=== PATIENT | female | born 1980 | race Caucasian/White ===

== ENCOUNTER 2016-04-27 14:54 | Emergency (ER) | payer BC, OTHER ==
[2016-04-27 16:13] VITALS: BP 153/96
--- NOTE | 2016-04-27 16:54 | UC ---
Throat Pain/Nasal Jacobo HPI - HPI Summary HPI Summary: 03/25/16 had influenza symptoms. SINCE THAT TIME HAS HAD SONGESTION IN SINUSES, SORE THROAT AND FULLNESS IN EARS. RIGHT SIDE WORSE THAN LEFT. SIX MONTHS AGO HAD RETURN OF [place]., HAD MANY [place] EPISODES IN ADOLESCENCE. SPOKE TO DR SARAVIA SOCIALLY AND HE SUGGESTED A REFERRAL AND [facility]ISIT [facility]. - History of Current Complaint Chief Complaint: UCRespiratory Stated Complaint: EAR CLOGGED AND SINUS CONGESTION Time Seen by Provider: 04/27/16 16:11 Hx Obtained From: Patient Hx Last Menstrual Period: 04/19/16 Onset/Duration: Gradual Onset, Lasting Weeks Severity: Moderate Pain Intensity: 4 Pain Scale Used: 0-10 Numeric Cough: Nonproductive Associated Signs & Symptoms: Positive: Sinus Discomfort, Nasal Discharge - Epiglottits Risk Factors Epiglottis Risk Factors: Negative - Allergies/Home Medications Allergies/Adverse Reactions: Allergies Allergy/AdvReac Type Severity Reaction Status Date / Time Penicillins Allergy Severe Difficulty Verified 04/24/12 10:43 Breathing Home Medications: Home Medications Ibuprofen [Advil] 200 mg PO 04/27/16 [History] Pseudoephedrine-Ibuprofen [Advil Cold & Sinus] 1 cap PO 04/27/16 [History] PMH/Surg Hx/FS Hx/Imm Hx Previously Healthy: Yes Endocrine History Of: Denies: Diabetes, Thyroid Disease Cardiovascular History Of: Denies: Cardiac Disorders, Hypertension Respiratory History Of: Denies: COPD, Asthma GI/ History Of: Denies: Ulcer - Surgical History Surgical History: Yes Surgery Procedure, Year, and Place: - Family History Known Family History: Negative: Respiratory Disease - Social History Occupation: Employed Full-time Lives: With Family Alcohol Use: Occasionally Substance Use Type: None Smoking Status (MU): Never Smoked Tobacco - Immunization History Most Recent Tetanus Shot: pt unsure Review of Systems Constitutional: Negative Skin: Negative Eyes: Negative ENT: Sore Throat, Ear Ache Respiratory: Negative Cardiovascular: Negative Gastrointestinal: Negative Genitourinary: Negative Motor: Negative Neurovascular: Negative Musculoskeletal: Negative Neurological: Negative Psychological: Negative All Other Systems Reviewed And Are Negative: Yes Physical Exam Triage Information Reviewed: Yes Appearance: Well-Appearing, No Pain Distress, Well-Nourished Vital Signs: Initial Vital Signs Temp 97.3 F 04/27/16 16:06 Pulse 98 04/27/16 16:06 Resp 18 04/27/16 16:06 BP 153/96 04/27/16 16:06 Pulse Ox 100 04/27/16 16:06 Vital Signs Reviewed: Yes Eye Exam: Normal Eyes: Positive: Conjunctiva Clear ENT: Positive: Normal ENT inspection, Hearing grossly normal, TM bulging, TM dull Dental Exam: Normal Neck exam: Normal Neck: Positive: Supple, Nontender, No Lymphadenopathy Respiratory Exam: Normal Respiratory: Positive: Chest non-tender, Lungs clear, Normal breath sounds, No respiratory distress, No accessory muscle use Cardiovascular Exam: Normal Cardiovascular: Positive: RRR, No Murmur, Pulses Normal Abdominal Exam: Normal Musculoskeletal Exam: Normal Neurological Exam: Normal Psychological Exam: Normal Skin Exam: Normal Throat Pain/Nasal Course/Dx - Differential Dx/Diagnosis Differential Diagnosis/HQI/PQRI: Otitis Media, Sinusitis, URI Provider Diagnoses: RIGHT OTITIS SEROUS. VERTIGO. SINUSITIS Discharge - Discharge Plan Condition: Stable Disposition: HOME Prescriptions: DOXYcycline CAP(*) [DOXYcycline 100MG CAP(*)] 100 mg PO BID #20 cap Fluticasone NASAL SPRAY 50MCG* [Flonase NASAL SPRAY 50MCG*] 2 spray BOTH NARES DAILY #1 btl Meclizine TAB* [Antivert 12.5 TAB*] 25 mg PO TID PRN #12 tab PRN Reason: Vertigo Patient Education Materials: Sinusitis (ED), Vertigo (ED), Serous Otitis Media (ED) Referrals: [facility] PHYSICIAN REFERRAL [Outside] Mary Shoemaker MD [Medical Doctor] - Dru Saravia MD [Medical Doctor] -
== END 2016-04-27 16:37 | disposition home or self-care (01) ==
LOC: UCEAST 14:54
DX: H65.91 Unspecified nonsuppurative otitis media, right ear (principal); R42 Dizziness and giddiness; J32.9 Chronic sinusitis, unspecified; Z88.0 Allergy status to penicillin
CPT/HCPCS: 99212; G0463

== ENCOUNTER 2018-01-09 16:23 | Emergency (ER) | payer BC ==
[2018-01-09 18:00] VITALS: BP 138/91
--- NOTE | 2018-01-09 18:11 | UC ---
Skin Complaint HPI - HPI Summary HPI Summary: Patient is a 37-year-old female who presents emergency department for a bump to her left or that she noticed yesterday. Patient also complains of intermittent palpitations. She states she has a lot of stress at home and at work. She states that she feels of the patient's when she is anxious or worked up. She denies chest pain, shortness of breath. She is no significant past medical history. Patient so denies fever, chills, or vomiting. Symptoms are mild to moderate in severity. No current modifying factors. - History of Current Complaint Chief Complaint: UCCardiac Time Seen by Provider: 01/09/18 17:55 Stated Complaint: SKIN COMPLAINT Hx Obtained From: Patient Hx Last Menstrual Period: 04/19/16 Pain Intensity: 0 - Allergy/Home Medications Allergies/Adverse Reactions: Allergies Allergy/AdvReac Type Severity Reaction Status Date / Time Penicillins Allergy Difficulty Verified 01/09/18 17:50 Breathing Home Medications: Home Medications Clobetasol 0.05% OINT* 1 applic TOPICAL BID 01/09/18 [History Confirmed 01/09/18 ] Naproxen Sodium [Naproxen 220 mg] 440 mg PO Q12HR PRN 01/09/18 [History Confirmed 01/09/18] Review of Systems Constitutional: Negative Skin: Other - Bump to left groin Eyes: Negative ENT: Negative Respiratory: Negative Cardiovascular: Palpitations Gastrointestinal: Negative Musculoskeletal: Negative Neurological: Negative Is Patient Immunocompromised?: No All Other Systems Reviewed And Are Negative: Yes PMH/Surg Hx/FS Hx/Imm Hx Previously Healthy: Yes - Surgical History Surgical History: Yes Surgery Procedure, Year, and Place: - Family History Known Family History: Negative: Respiratory Disease - Social History Occupation: Employed Full-time Lives: With Family Alcohol Use: None Substance Use Type: None Smoking Status (MU): Never Smoked Tobacco - Immunization History Most Recent Tetanus Shot: pt unsure Physical Exam Triage Information Reviewed: Yes Appearance: Well-Appearing - Pt. sitting on bed in NAD. Vital Signs: Initial Vital Signs Temp 98.9 F 01/09/18 17:48 Pulse 104 01/09/18 17:48 Resp 18 01/09/18 17:48 BP 138/91 01/09/18 17:48 Pulse Ox 99 01/09/18 17:48 Vital Signs Reviewed: Yes Eyes: Positive: Conjunctiva Clear Neck: Positive: Supple Respiratory: Positive: Lungs clear, Normal breath sounds Cardiovascular: Positive: RRR, No Murmur Neurological Exam: Normal Psychological Exam: Normal Skin: Positive: Other - Noted to the left groin there is a 1cm area of ecchymosis with a smaller area of ecchymosis inferiorly. Area is not tender. No erythema or drainage. Course/Dx - Course Course Of Treatment: Should presenting with intermittent palpitations as well as evaluation of painless area of ecchymosis to left groin. She has no CP or SOB. Afebrile with stable vital signs. EKG done at 1922 shows a sinus rhythm of 84 bpm, normal axis, appropriate intervals, no ST elevation or depression. Did order basic labs to evaluate right hand electrolytes. Bump to left groin is most susceptible they varicose vein. No evidence of abscess or infection. Advised to apply warm compresses patient was given information for the physician referral line to establish a PCP or to follow-up with the [facility]. Call patient tomrrow if blood work is abnormal. Directed to return to urgent care or go to the ER symptoms change or worsen. Patient understands and agrees with plan. - Differential Diagnoses - Skin Complaint Differential Diagnoses: Abscess - Diagnoses Provider Diagnoses: 1. Palpitations 2. Varicose vein Discharge - Sign-Out/Discharge Documenting (check all that apply): Patient Departure All imaging exams completed and their final reports reviewed: No Studies - Discharge Plan Condition: Good Disposition: HOME Patient Education Materials: Heart Palpitations (ED), Venous Insufficiency (DC) Referrals: [facility] [Outside] [facility] PHYSICIAN REFERRAL [Outside] Additional Instructions: Please schedule a follow up appointment with the [facility] or call the physician referral line to establish a PCP Will call if labs are abnormal Apply warm compresses to groin Avoid caffeine Go to the ER for chest pain, shortness of breath, fast heart rate, or for redness, pain, fever, vomiting - Billing Disposition and Condition Condition: GOOD Disposition: Home
[2018-01-10 10:45] LABS: ABS Basophils 0.1 10^3/ul (0-0.2); ABS Eosinophils 0.4 10^3/ul (0-0.6); ABS Lymphocytes 3.1 10^3/ul (1.0-4.8); ABS Monocytes 0.7 10^3/ul (0-0.8); ABS Neutrophils 5.4 10^3/ul (1.5-7.7); ABS Nucleated RBC 0 10^3/ul; Eosinophil % 4.1 % (0-6); Hematocrit 37 % (35-47); Hemoglobin 12.2 g/dl (12.0-16.0); Lymphocyte % 32.1 % (25-47); Mean Corpuscular HGB Conc 33 g/dl (31-36); Mean Corpuscular Hemoglobin 25 pg (27-31); Mean Corpuscular Volume 77 fL (80-97); Mean Platelet Volume 8.7 fL (7.4-10.4); Nucleated Red Blood Cells % 0.1; Platelet Count 371 10^3/ul (150-450); Red Blood Count 4.81 10^6/ul (4.00-5.40); Red Cell Distribution Width 15 % (10.5-15); White Blood Count 9.6 10^3/ul (3.5-10.8)
[2018-01-10 10:57] LABS: EGFR Non-African American 80.7 (>60)
== END 2018-01-09 19:00 | disposition home or self-care (01) ==
LOC: UCEAST 16:23
DX: I83.92 Asymptomatic varicose veins of left lower extremity (principal); R00.2 Palpitations
CPT/HCPCS: 36415; 80053; 83735; 84443; 85025; 93005; 99211; G0463

== ENCOUNTER 2018-09-20 05:52 | Inpatient (IN) | payer BC ==
[~2018-09-20 05:52] MED LIST: Buffered Lidocaine 1% SYRIN* 1 ML/SYRINGE INTRADERM ONE
[2018-09-20] MEDS ORDERED: Famotidine IV* 10 MG/ML 2 ML (20 mg) IV ONE (06:00)
[2018-09-20] MEDS ORDERED: Heparin VIAL(*) 5000 UNITS/ML VIAL (FIVE THOUSAND) ONE (06:26)
[2018-09-20] MEDS ORDERED: Buffered Lidocaine 1% SYRIN* 1 ML/SYRINGE INTRADERM ONE (06:26)
[2018-09-20] MEDS ORDERED: Famotidine IV* 10 MG/ML 2 ML (20 mg) ONE (06:26)
[2018-09-20] MEDS ORDERED: Clindamycin 900 MG IVPREMIX(* 900 MG/50 ML SDV IV ONE (06:26)
[2018-09-20] MEDS: Lactated Ringers 1000 ML Bag* 1,000 ML IV SCH ×4 (07:02→19:09)
[2018-09-20] MEDS ORDERED: Bupivacaine 0.25% EPI 200,000* 30 ML SDV ONE (07:24)
[2018-09-20] MEDS ORDERED: Midazolam* 1 MG/ML 5 ML VIAL (5 MG) ONE (07:30)
[2018-09-20] MEDS ORDERED: fentaNYL* 50 MCG/ML 2 ML VIAL (100 MCG VIAL) ONE ×2 (07:30→08:01)
[2018-09-20] MEDS ORDERED: Rocuronium* 10 MG/ML VIAL ONE (07:32)
[2018-09-20] MEDS ORDERED: Succinylcholine* 20 MG/ML 10 ML VIAL ONE (08:13)
[2018-09-20] MEDS ORDERED: Ketorolac INJ* 30 MG/ML 1 ML VIAL ONE (08:13)
[2018-09-20] MEDS ORDERED: Propofol* 10 MG/ML 20 ML BTL ONE (08:13)
[2018-09-20] MEDS ORDERED: Ondansetron INJ* 2 MG/ML VIAL ONE (08:13)
[2018-09-20] MEDS ORDERED: DiMENhydriNATE IV* 50 MG/ML VIAL ONE ×2 (08:13→09:37)
[2018-09-20] MEDS ORDERED: Dexamethasone IV* 4 MG/ML 1 ML (4 MG) ONE (08:13)
[2018-09-20] MEDS ORDERED: Scopolamine 1.5 mg* PATCH ONE (08:13)
[2018-09-20] MEDS ORDERED: Lidocaine 2% PF * 5 ML VIAL ONE (08:13)
[2018-09-20] MEDS ORDERED: HYDROmorphone INJ1* 1 MG/ML SYRINGE ONE ×2 (08:46→09:32)
[2018-09-20] MEDS ORDERED: diPHENhydraMINE IV* 50 MG/ML 1 ml VIAL (BENADRYL) SLOW PUSH PRN (09:23)
[2018-09-20] MEDS ORDERED: HYDROmorphone INJ1* 1 MG/ML SYRINGE IV SLOW PU PRN (09:30)
[2018-09-20] MEDS ORDERED: DiMENhydriNATE IV* 50 MG/ML VIAL IV PUSH PRN ×2 (09:31→10:25)
[2018-09-20] MEDS ORDERED: Naloxone* 0.4 MG/ML 1 ML VIAL IV PRN (09:31)
[2018-09-20] MEDS ORDERED: Acetaminophen IV 1GM/100ML * 1,000 MG/100 ML VIAL IVPB ONE (09:31)
[2018-09-20] MEDS ORDERED: Acetaminophen IV 1GM/100ML * 100 ML ONE (09:32)
[2018-09-20] MEDS: HYDROmorphone INJ1* 1 MG/ML SYRINGE IV PRN ×4 (09:33→11:42)
[2018-09-20] MEDS ORDERED: Metoclopramide IV* 5 MG/ML 2 ML VIAL ONE (09:53)
[2018-09-20] MEDS ORDERED: Labetalol IV* 5 MG/ML 20 ML VIAL IV PUSH ONE ×2 (10:22)
[2018-09-20] MEDS ORDERED: Labetalol IV* 5 MG/ML 20 ML VIAL ONE (10:23)
[2018-09-20] MEDS ORDERED: Metoclopramide IV* 5 MG/ML 2 ML VIAL IV SLOW PU ONE (10:23)
[2018-09-20] MEDS: Ketorolac INJ* 30 MG/ML 1 ML VIAL IV PRN ×2 (13:19→20:45)
[2018-09-20] MEDS: HYDROmorphone INJ1* 1 MG/ML SYRINGE IV SLOW PU PRN ×3 (14:31→21:59)
[2018-09-20] MEDS: Heparin VIAL(*) 5000 UNITS/ML VIAL (FIVE THOUSAND) SUBCUT SCH ×2 (14:32→21:59)
[2018-09-20] MEDS: Ondansetron INJ* 2 MG/ML VIAL IV PRN (17:56)
[2018-09-20] MEDS: Famotidine IV* 10 MG/ML 2 ML (20 mg) IV SLOW PU SCH (20:45)
--- NOTE | 2018-09-20 21:05 | OP ---
CC: Primary care doctor; [facility] * DATE OF OPERATION: 09/20/18 - ROOM #352 DATE OF : 80 SURGEON: Rex Hu MD TARGETING ACQUISITION OFFICER: Liz Candealria NP ANESTHESIOLOGIST: Dr. Harvey. ANESTHESIA: General anesthesia. PRE-OP DIAGNOSES: 1. Clinically severe obesity. 2. Hypertension. 3. Hypercholesterolemia. POST-OP DIAGNOSES: 1. Clinically severe obesity. 2. Hypertension. 3. Hypercholesterolemia. OPERATIVE PROCEDURE: Laparoscopic sleeve gastrectomy. ESTIMATED BLOOD LOSS: Minimal. FLUIDS: Minimal crystalloid fluid given. SPECIMEN: Portion of stomach. DESCRIPTION OF PROCEDURE: The patient was identified in the preoperative area. She was taken to the operating room and placed on the operating table in supine position. Preoperative antibiotics were given. Sequential devices were placed on bilateral lower extremities. General anesthesia was induced and the patient' s abdomen was prepped and draped in the standard surgical fashion. Time-out was performed. Folds of the umbilicus were elevated anteriorly and a Veress needle inserted into the abdominal cavity which was then allowed to a pressure of 15 mmHg. Optical trocars were then placed along the midline and along the upper midline. Camera was placed through this. There was no evidence of injury from the trocar insertion or from the Veress needle, which was then removed. Two additional trocars were placed in the left upper quadrant and 1 additional 12 mm trocar in the right upper quadrant. The table was repositioned to steep reverse Trendelenburg. A Marley retractor was inserted through the subxiphoid incision. The liver was retracted anteriorly into the right. Review of the abdomen showed normal appearing small bowel and stomach. Liver was appropriate size with some hemangiomas but no lesion suggestive of malignancy. We bluntly dissected the peritoneum overlying the left marcie and turned our attention to the pylorus. Once this was identified, approximately 5 cm proximal to this, a retrogastric dissection was performed and the vasculature to the greater curvature of the stomach was taken with LigaSure device right up to the previously dissected area at the angle of His. Posterior attachments and vessels were taken in a similar fashion until the stomach completely rotated along its axis. Next, the sleeve stomach was created using 60 mm purple AZALEA stapling device with reinforcing strips and performing these over with bougie in a standard fashion. The bougie was removed. The staple line lay flat without any cord screwing. There was no bleeding. Hemostasis was excellent and the liver retractor was removed and fell back on to the sleeve stomach obscuring the stomach entirely. Next, the resected portion of the stomach was placed in endoscopic retrieval bag and brought out through the right upper quadrant port site and passed off as specimen. We then closed the fascia at this level with Weck device using 0 Vicryl suture. Abdomen was allowed to collapse. Trocars were removed under direct vision and all incisions were reapproximated with 4-0 Monocryl subcuticular suture, and Steri-Strips and sterile dressing were applied. The patient tolerated the procedure well, was awoken up in the OR and transferred to the PACU in stable condition. [id number]/[facility] #: [id number] JOE
[2018-09-21] MEDS: Ondansetron INJ* 2 MG/ML VIAL IV PRN ×2 (01:30→09:31)
[2018-09-21] MEDS: Lactated Ringers 1000 ML Bag* 1,000 ML IV SCH ×2 (01:30→09:25)
[2018-09-21] MEDS: Ketorolac INJ* 30 MG/ML 1 ML VIAL IV PRN ×2 (03:20→09:28)
[2018-09-21] MEDS: Heparin VIAL(*) 5000 UNITS/ML VIAL (FIVE THOUSAND) SUBCUT SCH ×3 (05:48→22:10)
[2018-09-21] MEDS: HYDROmorphone INJ1* 1 MG/ML SYRINGE IV SLOW PU PRN ×4 (06:01→18:44)
[2018-09-21] MEDS: Famotidine IV* 10 MG/ML 2 ML (20 mg) IV SLOW PU SCH ×2 (09:22→22:06)
--- NOTE | 2018-09-21 09:53 | PN ---
Progress Note - Progress Note Date of Service: 09/21/18 SOAP: Subjective: pt seen and examined. Doing well. no compliants Objective: [ Temp Pulse Resp BP Pulse Ox 98.6 F 62 12 128/67 96 09/21/18 07:37 09/21/18 07:37 09/21/18 07:37 09/21/18 07:37 09/21/18 07:37 a and o x3, nad abdo: soft/ ND/NT dressing intact ext wnl UGI P Assessment: POD 1 sleeve Plan: UGI possible home today
[2018-09-21] MEDS: D5W 1/2 NS KCl 20 Meq 1000 ML* 1,000 ML IV SCH ×2 (10:51→18:37)
[2018-09-21] MEDS: HYDROcodone/ACET. 7.5/325 LIQ* 15 ML UDC PO PRN (23:49)
[2018-09-22] MEDS: D5W 1/2 NS KCl 20 Meq 1000 ML* 1,000 ML IV SCH (02:37)
[2018-09-22] MEDS: Heparin VIAL(*) 5000 UNITS/ML VIAL (FIVE THOUSAND) SUBCUT SCH ×2 (06:16→14:35)
[2018-09-22] MEDS: HYDROcodone/ACET. 7.5/325 LIQ* 15 ML UDC PO PRN ×2 (06:18→12:32)
[2018-09-22] MEDS: Famotidine IV* 10 MG/ML 2 ML (20 mg) IV SLOW PU SCH (10:21)
--- NOTE | 2018-09-22 10:36 | PN ---
Progress Note - Progress Note Date of Service: 09/22/18 Note: S: Feels better. Not much pain. Raji clears, though has not been recording consistently. Had BM this a.m. Would like to go home. O: Vital Signs - 8 hr 09/22/18 09/22/18 09/22/18 03:22 06:18 07:42 Temperature 98.1 F 98.3 F Pulse Rate 57 57 Respiratory 16 20 15 Rate Blood Pressure 138/72 149/69 (mmHg) O2 Sat by Pulse 99 99 Oximetry 09/22/18 10:22 Temperature Pulse Rate Respiratory 18 Rate Blood Pressure (mmHg) O2 Sat by Pulse Oximetry Intake and Output Last 24 Hours 09/20/18 09/21/18 09/22/18 09/23/18 06:59 06:59 06:59 06:59 Intake Total 4004 1405 776 Output Total 2500 4725 Balance 1504 -3320 776 Weight 247 lb Intake: IV Fluids 4004 1205 776 D5w1/2 NS 990 776 LR 4004 215 Oral 0 200 Output: Urine 2500 4725 Other: # Bowel Movements 0 Gen: appears comfortable; NAD Heart: reg Lungs: clear Abd: lap sites look good; steris in place; mild incisional tenderness only A: s/p lap sleeve gastrectomy, doing well P: home today; instructions reviewed; f/u at [facility] next wk as sched
--- NOTE | 2018-09-22 10:54 | DS ---
CC: Dr. Smith, [facility] * DISCHARGE SUMMARY: DATE OF ADMISSION: 09/20/18 DATE OF DISCHARGE: 09/22/18 ATTENDING SURGEON: Dr. Rex Hu.* (DICTATED BY JONAH GREWAL) HOSPITAL COURSE: Please refer to admission history and physical and operative note for details. The patient was taken to the operating room on 09/20/18, at which time she underwent laparoscopic sleeve gastrectomy with Dr. Hu. Surgery itself and postoperative course had been unremarkable. The patient has been able to gradually progress in terms of oral intake and pain control and is deemed ready for discharge on the morning of postoperative day 2. She will resume her usual medications. She has a prescription for hydrocodone liquid p.r.n. for moderately severe pain, but was also instructed that she may use Tylenol and/or Advil p.r.n. for mild to moderate pain. She already has an appointment next week at [facility]. She was discharged to home in good condition. JONAH GREWAL [id number]/[facility] #: [id number] MTDD
[2018-09-22 11:33] VITALS: BP 144/77
== END 2018-09-22 14:25 | disposition home or self-care (01) | DRG 403 ==
LOC: OR 05:52 → SSU 12:44
PROVIDERS: ADMIT Surgery; ATTEND Surgery
PROC: 0DB64Z3 Excision of Stomach, Percutaneous Endoscopic Approach, Vertical (ICD-10-PCS; principal; 2018-09-20 07:30)
DX: E66.01 Morbid (severe) obesity due to excess calories (principal); Z68.41 Body mass index [BMI] 40.0-44.9, adult; E78.5 Hyperlipidemia, unspecified; I10 Essential (primary) hypertension; E78.00 Pure hypercholesterolemia, unspecified; L40.50 Arthropathic psoriasis, unspecified; Z82.61 Family history of arthritis; Z82.3 Family history of stroke; Z83.49 Family history of other endocrine, nutritional and metabolic diseases; Z80.0 Family history of malignant neoplasm of digestive organs; Z80.1 Family history of malignant neoplasm of trachea, bronchus and lung; Z80.8 Family history of malignant neoplasm of other organs or systems; Z81.8 Family history of other mental and behavioral disorders; Z72.89 Other problems related to lifestyle; Z87.891 Personal history of nicotine dependence
CPT/HCPCS: 43775; 74246; 81025; 88307; A9270-GY; J0330; J1100; J1170; J1240; J1644; J1885; J2250; J2405; J2704; J2765; J3010

== ENCOUNTER 2018-12-20 17:52 | Emergency (ER) | payer BC ==
--- OUTSIDE RECORDS SUMMARY | 2018-12-20 18:09 | XMS REPORT | Continuity of Care Document ---
:1980 External Reference #:[id number] Author Name Dru Carpenter M.D. (transmitted by agent of provider Diana Elizalde) Address [address] [place] [address] Care Team Providers Name Role Phone Helen Valles MD - Surgery of the Care Team Information Graduation Coach Hand Josiane Sanabria MD - Hand Surgery Care Team Information Graduation Coach Virginia Smith DO - Family Care Team Information Graduation Coach Medicine Problems Active Problems Provider Date Psoriasis William Rangel M.D. 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 5000mcg Tablets Dispers Nauruan Dream apply to painful 90units Dru Carpenter, 09/04/2018 Arthritis Pain joints twice daily M.D. Relief as needed for pain 0.025% Cream Clobetasol Unknown Propionate 0.05% Ointment Tylenol 8 Hour 650mg by mouth Unknown Arthritis Pain q6hr as needed 650mg pain Tablets ER Medications Administered in Office Medication SIG Qnty Indications Ordering Provider Date Triamcinolone (Kenalog) Dru Carpenter M.D. 09/04/2018 Injection Celestone 3 mg and 3mg Avinash Parham MD 07/26/2018 Injection Celestone 3 mg and 3mg Avinash Parham MD 07/26/2018 Injection Celestone 3 mg and 3mg Avinash Parham MD 07/26/2018 Injection Celestone 3 mg and 3mg Avinash Parham MD 05/23/2018 Injection Celestone 3 mg and 3mg Avinash Parham MD 05/23/2018 Injection Triamcinolone (Kenalog) Dru Carpenter M.D. 08/18/2017 Injection Celestone 3 mg and 3mg Avinash Parham MD 05/25/2017 Injection Celestone 3 mg and 3mg Avinash Parham MD 05/25/2017 Injection Celestone 3 mg and 3mg Avinash Parham MD 12/01/2015 Injection Celestone 3 mg and 3mg Stephanie Sanabria, 11/23/2010 Injection MEdwige Immunizations Description No Information Available Vital Signs Date Vital Result Comment 12/05/2018 3:28pm Height 66 inches 5'6" Weight 219.25 lb Heart Rate 86 /min BP Systolic Sitting 138 mmHg BP Diastolic Sitting 84 mmHg Pain Level 2 O2 % BldC Oximetry 98 % BMI (Body Mass Index) 35.4 kg/m2 09/04/2018 1:58pm Height 66 inches 5'6" Weight 257.00 lb Heart Rate 70 /min BP Systolic 142 mmHg BP Diastolic 93 mmHg Body Temperature 98.8 F O2 % BldC Oximetry 99 % BMI (Body Mass Index) 41.5 kg/m2 Results Test Date Facility Test Result H/L Range Note Laboratory test 09/20/2018 [facility] Surgical SEE RESULT [address] [place] [address] [phone] CBC No Diff 09/11/2018 [facility] White Blood 9.4 10^3/uL Normal 3.5-10.[address] [place] [address] [phone] Red Blood Count 4.83 10^6/uL Normal 3.70-4.87 Hemoglobin 12.8 g/dL Normal 12.0-16.0 Hematocrit 39 % Normal 35-47 Mean Corpuscular Volume 80 fL Normal 80-97 Mean Corpuscular Hemoglobin 27 pg Normal 27-31 Mean Corpuscular HGB Conc 33 g/dL Normal 31-36 Red Cell Distribution Width 14 % Normal 10-15 Platelet Count 354 10^3/uL Normal 150-450 Mean Platelet Volume 8.5 fL Normal 7.4-10.4 Basic Metabolic 09/11/2018 [facility] Sodium 137 mmol/L Normal 135-145 Panel [address] [place] [address] [phone] Potassium 4.4 mmol/L Normal 3.5-5.0 Chloride 103 mmol/L Normal 101-111 Co2 Carbon Dioxide 27 mmol/L Normal 22-32 Anion Gap 7 mmol/L Normal 2-11 Glucose 82 mg/dL Normal 70-100 Blood Urea Nitrogen 19 mg/dL Normal 6-24 Creatinine 0.74 mg/dL Normal 0.51-0.95 BUN/Creatinine Ratio 25.7 High 8-20 Calcium 9.8 mg/dL Normal 8.6-10.3 Egfr Non- 88.3 >60 Egfr 106.9 >60 2 Iron & Iron Binding 09/11/2018 [facility] Iron 29 g/dL Low 50-212 [address]acity [address] [place] [address] [phone] Unsaturated Iron Binding < 385 g/dL Total Iron Binding Capacity 400 g/dL Normal 250-450 Transferrin 286 mg/dL Normal 203-362 % Iron Saturation 7 % Low 15-55 1 SEE RESULT BELOW Name: ABDI DE ANDA : [address]: Rex Hu MD Acct: [id number] Unit: [id number] AGE: 37 Location: [place] [address]- Re09/20/18 SEX: F Status: ADM IN SPEC: [id number] CLAUDIA: 09/20/[address] [facility] [address]: Rex Hu MD REQ: [id number] RECD: 09/20/18 STATUS: SOUT _ ORDERED: LEVEL 5 FINAL DIAGNOSIS Stomach, partial gastrectomy: -- Benign gastric tissue with no significant pathologic abnormalities. PRE-OPERATIVE DIAGNOSIS Obesity due to excess calories GROSS DESCRIPTION The specimen is received in formalin labeled, Portion of Stomach, and consists of a 23.0 by up to 4.2 x 3.5 cm previously disrupted portion of gastric tissue. The serosa is smooth to shaggy cochran-pink with multiple defects, scant adherent yellow fat and a prominent staple line. The mucosa is glistening cochran-red with normal rugal folds. District Captain sections, one cassette. Signed by and Reported on: Annie Powers MD 09/21/18 1041 END OF REPORT DEPARTMENT OF PATHOLOGY, [address] [place] [address] Miguel Ángel Wood M.D. Director [facility] # [id number] 2 Because ethnic data is not always readily available, this report includes an eGFR for both -Americans and non- Americans. The National Kidney Disease Education Program (NKDEP) does not endorse the use of the MDRD equation for patients that are not between the ages of 18 and 70, are , have extremes of body size, muscle mass, or nutritional status, or are non- or non-. According to the National Kidney Foundation, irrespective of diagnosis, the stage of the disease is based on the level of kidney function: Stage Description GFR(mL/min/1.73 m(2)) 1 Kidney damage with normal or decreased GFR 90 2 Kidney damage with mild decrease in GFR 60-89 3 Moderate decrease in GFR 30-59 4 Severe decrease in GFR 15-29 5 Kidney failure <15 (or dialysis) Procedures Date Code Description Status 09/04/2018 07439 Inject/Drain Joint/Bursa Major W/O US Completed 07/26/2018 87506 Inject/Drain Joint/Bursa Small W/O US Completed 07/26/2018 42260 Inject/Drain Joint/Bursa Small W/O US Completed 07/26/2018 71510 Inject Tendon Sheath Or Ligament Aponeurosis Eg Plantar Completed Fascia Medical Devices Description No Information Available Encounters Type Date Location Provider Dx Diagnosis Office Visit 09/04/2018 Rheumatology Dru Carpenter L40.50 Ar[facility]ropathic 1:[facility] psoriasis, unspecified M70.52 Other bursitis of knee, left knee Z79.899 Other intermediate card tender (current) drug therapy M25.552 Pain in left hip Office Visit 07/26/2018 8:30a Neal Da Silva L40.50 [facility] psoriasis, [employer] unspecified M65.341 Trigger finger, right ring finger Assessments Date Code Description Provider 12/05/2018 L40.50 Arthropathic psoriasis, unspecified Dru Carpenter M.D. 12/05/2018 M70.52 Other bursitis of knee, left knee Dru Carpenter M.D. 12/05/2018 Z79.899 Other intermediate card tender (current) drug therapy Dru Carpenter M.D. 12/05/2018 M25.552 Pain in left hip Dru Carpenter M.D. 09/04/2018 L40.50 Arthropathic psoriasis, unspecified Dru Carpenter M.D. 09/04/2018 M70.52 Other bursitis of knee, left knee Dru Carpenter M.D. 09/04/2018 Z79.899 Other assisted (current) drug therapy Dru Carpenter M.D. 09/04/2018 M25.552 Pain in left hip Dru Carpenter M.D. 07/26/2018 L40.50 Arthropathic psoriasis, unspecified Avinash Parham MD 07/26/2018 M65.341 Trigger finger, right ring finger Avinash Parham MD Plan of Treatment Future Appointment(s):03/08/2019 10:20 am - Dru Carpentre M.D. at [facility]12/05/2018 - Dru Carpenter M.D.L40.50 Arthropathic psoriasis, [id number] Other bursitis of knee, left kneeZ79.899 Other intermediate card tender ( current) drug therapyFollow up:Follow up in 3 months or sooner if [id number] Pain in left hipNew Therapy:Physical Therapy Functional Status Description No Information Available Mental Status Description No Information Available Referrals Description No Information Available
[2018-12-20 18:54] VITALS: BP 133/80
--- NOTE | 2018-12-20 19:17 | UC ---
Throat Pain/Nasal Jacobo HPI - HPI Summary HPI Summary: 38-year-old female comes with a chief complaint of sore throat. Started this morning. She took some acetaminophen which didn't help decrease the pain. She also has some left ear pressure. Her son recently had strep and a couple of friends also had strep so she is most concerned about the possibility of strep throat. No recent fevers. No complaint of chest pain or shortness of breath or difficulty breathing. Pain is worse with swallowing. - History of Current Complaint Chief Complaint: UCRespiratory Stated Complaint: SORE THROAT Time Seen by Provider: 12/20/18 19:06 Hx Last Menstrual Period: 12/18/18 Pain Intensity: 3 - Allergies/Home Medications Allergies/Adverse Reactions: Allergies Allergy/AdvReac Type Severity Reaction Status Date / Time Penicillins Allergy Difficulty Verified 12/20/18 18:53 Breathing ondansetron [From Zofran] AdvReac Vomiting Verified 12/20/18 18:53 Home Medications: Home Medications Multivitamin [Multivitamins] 1 tab PO DAILY 12/20/18 [History Confirmed 12/20/18 ] PMH/Surg Hx/FS Hx/Imm Hx Previously Healthy: Yes - Surgical History Surgical History: Yes Surgery Procedure, Year, and Place: . gastric sleeve 09/2018 - Family History Known Family History: Negative: Respiratory Disease - Social History Alcohol Use: None Substance Use Type: None Smoking Status (MU): Never Smoked Tobacco Amount Used/How Often: 2 CIGARETTES PER DAY SOCIALLY ONLY X 5 YEARS Have You Smoked in the Last Year: No When Did the Patient Quit Smoking/Using Tobacco: 2011 - Immunization History Most Recent Influenza Vaccination: 2017 Most Recent Tetanus Shot: pt unsure Most Recent Pneumonia Vaccination: HAS NOT HAD Review of Systems All Other Systems Reviewed And Are Negative: Yes Constitutional: Positive: Negative Skin: Positive: Negative Eyes: Positive: Negative ENT: Positive: Sore Throat, Ear Ache Respiratory: Positive: Negative Cardiovascular: Positive: Negative Gastrointestinal: Positive: Negative Motor: Positive: Negative Neurovascular: Positive: Negative Musculoskeletal: Positive: Negative Neurological: Positive: Negative Psychological: Positive: Negative Is Patient Immunocompromised?: No Physical Exam Triage Information Reviewed: Yes Appearance: Well-Appearing, No Pain Distress, Well-Nourished Vital Signs: Initial Vital Signs Temp 98.9 F 12/20/18 18:48 Pulse 59 12/20/18 18:48 Resp 16 10/16/19 18:48 BP 133/80 12/20/18 18:48 Pulse Ox 100 12/20/18 18:48 Vital Signs Reviewed: Yes Eye Exam: Normal Eyes: Positive: Conjunctiva Clear ENT: Positive: Pharyngeal erythema, TMs normal Neck: Positive: Supple Respiratory: Positive: Lungs clear, Normal breath sounds, No respiratory distress Cardiovascular: Positive: RRR Musculoskeletal: Positive: Strength Intact, ROM Intact Neurological: Positive: Alert, Muscle Tone Normal Psychological: Positive: Age Appropriate Behavior Skin Exam: Normal Throat Pain/Nasal Course/Dx - Course Course Of Treatment: DISCUSSED VIRAL VERSES BACTERIAL INFECTIONS AND THE ROLE OF ANTIBIOTICS. THE PATIENT PREFERS TO BE ON ANTIBIOTICS AT THIS TIME. - Differential Dx/Diagnosis Provider Diagnosis: Pharyngitis Discharge ED - Sign-Out/Discharge Documenting (check all that apply): Patient Departure All imaging exams completed and their final reports reviewed: No Studies - Discharge Plan Condition: Stable Disposition: HOME Prescriptions: Cephalexin CAP* [Keflex CAP*] 500 mg PO TID #30 cap Patient Education Materials: Pharyngitis (ED) Referrals: Virginia Smith DO [Primary Care Provider] - Additional Instructions: FOLLOW UP WITH YOUR DOCTOR IF NOT COMPLETELY IMPROVED. GET RECHECKED SOONER IF YOUR CONDITION WORSENS OR ANY QUESTIONS OR CONCERNS. - Billing Disposition and Condition Condition: STABLE Disposition: Home
== END 2018-12-20 19:50 | disposition home or self-care (01) ==
LOC: UCEAST 17:52
DX: J02.9 Acute pharyngitis, unspecified (principal); H92.02 Otalgia, left ear; Z88.0 Allergy status to penicillin; Z88.8 Allergy status to other drugs, medicaments and biological substances; Z87.891 Personal history of nicotine dependence
CPT/HCPCS: 87651; 99212; G0463